=== PATIENT | female | born 1975 | race Caucasian/White ===

== ENCOUNTER 2017-01-18 13:49 | Emergency (ER) | payer SELFPAY ==
[2017-01-18] MEDS ORDERED: Ketorolac 60 MG/2 ML SDV IM ONE (14:24)
--- NOTE | 2017-01-18 14:26 | EDM.PDOC ---
ED HPI GENERAL MEDICAL PROBLEM - General Chief Complaint: Lower Extremity Injury/Pain Stated Complaint: LEFT HIP PAIN Time Seen by Provider: 01/18/17 14:00 Source of Information: Reports: Patient History Limitations: Reports: No Limitations - History of Present Illness INITIAL COMMENTS - FREE TEXT/NARRATIVE: History of present illness: [41-year-old male comes in complaining of pain in her hip. Has been seen for this pain and is been doing some physical therapy type exercises.] Review of systems: As per history of present illness and below otherwise all systems reviewed and negative. Past medical history: As per history of present illness and as reviewed below otherwise noncontributory. Surgical history: As per history of present illness and as reviewed below otherwise noncontributory. Social history: No reported history of drug or alcohol abuse. Family history: As per history of present illness and as reviewed below otherwise noncontributory. Physical exam: HEENT: Atraumatic, normocephalic, pupils reactive, negative for conjunctival pallor or scleral icterus, mucous membranes moist, throat clear, neck supple, nontender, trachea midline. Lungs: Clear to auscultation, breath sounds equal bilaterally, chest nontender. Heart: S1S2, regular, negative for clicks, rubs, or JVD. Abdomen: Soft, nondistended, nontender. Negative for masses or hepatosplenomegaly. Negative for costovertebral tenderness. Pelvis: Stable nontender. Genitourinary: Deferred. Rectal: Deferred. Extremities: Atraumatic, negative for cords or calf pain. Neurovascular unremarkable. Neuro: Awake, alert, oriented. Cranial nerves II through XII unremarkable. Cerebellum unremarkable. Motor and sensory unremarkable throughout. Exam nonfocal. Point tenderness to the piriformis on the left as well as the IT band. No palpable spasm patient does continue to have full range of motion. Diagnostics: [] Therapeutics: [Toradol 60 mg IM] Impression: [Performance pain, IT band tightness] Plan: [Performance stretches, meloxicam, Norflex] Definitive disposition and diagnosis as appropriate pending reevaluation and review of above. Left Hip Pain Score (Numeric/FACES): 4 - Related Data Allergies Allergy/AdvReac Type Severity Reaction Status Date / Time Penicillins Allergy Anaphylactic Verified 01/18/17 14:00 Shock phenobarbital Allergy Rash Verified 01/18/17 14:00 promethazine [From Phenergan] Allergy Anxiety Verified 01/18/17 14:00 Home Meds: Home Meds levETIRAcetam [Keppra] 500 mg PO TID 04/16/16 [History] Diazepam [Valium] 5 mg PO Q6HR PRN 01/18/17 [History] Hydrocodone/Acetaminophen [Hydrocodon-Acetaminophen 5-325] 1 tab PO Q6HR PRN [History] Meloxicam 7.5 mg PO BID #30 tablet 01/18/17 [Rx] Orphenadrine [Norflex] 100 mg PO BID #28 tab.er 01/18/17 [Rx] Past Medical History - Past Health History Medical/Surgical History: Denies Medical/Surgical History Musculoskeletal History: Reports: Other (See Below) Other Musculoskeletal History: degenerative disk disease Neurological History: Reports: Seizure Psychiatric History: Reports: Anxiety Other Dermatologic History: Basal Cell to face - Infectious Disease History Infectious Disease History: Reports: Chicken Pox - Past Surgical History GI Surgical History: Reports: Hernia Repair/Other Female Surgical History: Reports: Hysterectomy, Oophorectomy Social & Family History - Family History Family Medical History: Noncontributory - Tobacco Use Smoking Status *Q: Current Every Day Smoker Years of Tobacco use: 20 Packs/Tins Daily: 0.5 - Recreational Drug Use Recreational Drug Use: Yes Drug Use in Last 12 Months: Yes Recreational Drug Type: Reports: Marijuana/Hashish Recreational Drug Use Frequency: Daily - Living Situation & Occupation Living situation: Reports: , Other Occupation: Employed Review of Systems - Review of Systems Review Of Systems: See Below (See history of present illness) ED EXAM, GENERAL - Physical Exam Exam: See Below (See history of present illness) Course - Vital Signs Last Recorded V/S: Last Vital Signs Temp 36.8 C 01/18/17 13:57 Pulse 98 01/18/17 13:57 Resp 18 01/18/17 13:57 BP 153/114 H 01/18/17 13:57 Pulse Ox 98 01/18/17 13:57 Departure - Departure Time of Disposition: 14:25 Disposition: Home, Self-Care 01 Condition: Good Clinical Impression: Piriformis muscle pain, Iliotibial band syndrome - Discharge Information Prescriptions: Meloxicam 7.5 mg PO BID #30 tablet Orphenadrine [Norflex] 100 mg PO BID #28 tab.er Forms: ED Department Discharge Additional Instructions: The following information is given to patients seen in the emergency department who are being discharged to home. This information is to outline your options for follow-up care. We provide all patients seen in our emergency department with a follow-up referral. The need for follow-up, as well as the timing and circumstances, are variable depending upon the specifics of your emergency department visit. If you don't have a primary care physician on staff, we will provide you with a referral. We always advise you to contact your personal physician following an emergency department visit to inform them of the circumstance of the visit and for follow-up with them and/or the need for any referrals to a consulting specialist. The emergency department will also refer you to a specialist when appropriate. This referral assures that you have the opportunity for follow-up care with a specialist. All of these measure are taken in an effort to provide you with optimal care, which includes your follow-up. Under all circumstances we always encourage you to contact your private physician who remains a resource for coordinating your care. When calling for follow-up care, please make the office aware that this follow-up is from your recent emergency room visit. If for any reason you are refused follow-up, please contact the [facility] Emergency Department at and asked to speak to the emergency department charge nurse. Take medication as directed Follow-up with PCP a 1-2 days Return to ER as needed as discussed
[2017-01-18 16:24] VITALS: BP 134/94
== END 2017-01-18 15:30 | disposition home or self-care (01) ==
LOC: MW.ED 13:49
DX: M76.32 Iliotibial band syndrome, left leg (principal); M79.1 Myalgia; F41.9 Anxiety disorder, unspecified; F17.210 Nicotine dependence, cigarettes, uncomplicated; Z90.710 Acquired absence of both cervix and uterus; Z98.890 Other specified postprocedural states; Z88.0 Allergy status to penicillin; Z88.8 Allergy status to other drugs, medicaments and biological substances
CPT/HCPCS: 96372; 99283; J1885

== ENCOUNTER 2017-08-21 11:35 | Emergency (ER) | payer OTHER ==
--- NOTE | 2017-08-21 11:48 | EDM.PDOC ---
ED HPI GENERAL MEDICAL PROBLEM - General Stated Complaint: SEIZURE Time Seen by Provider: 08/21/17 11:39 Source of Information: Reports: Patient History Limitations: Reports: No Limitations - History of Present Illness INITIAL COMMENTS - FREE TEXT/NARRATIVE: HISTORY AND PHYSICAL: History of present illness: Patient is a 41-year-old female who presents to the emergency room today with complaints of seizure. She states she was at work and had fallen from standing height onto the cement ground. Currently complaining of headache, neck pain and left shoulder pain. She does have a known seizure disorder which she doctors with Dr. Villalobos in [place]. States that she has not seen him in approximately 7 months. Over the past several weeks she has had 4-5 seizures per week, which she attributes to increased stress. He takes Keppra 500 mg twice a day. States she does use marijuana daily for recreational and medicinal purposes. Upon arrival patient is C-collared, per EMS. She is alert and oriented. Is incontinent of urine. Review of systems: As per history of present illness and below otherwise all systems reviewed and negative. Past medical history: As per history of present illness and as reviewed below otherwise noncontributory. Surgical history: As per history of present illness and as reviewed below otherwise noncontributory. Social history: No reported history of drug or alcohol abuse. Family history: As per history of present illness and as reviewed below otherwise noncontributory. Physical exam: General: Well-developed and well-nourished 41-year-old female. Alert and oriented. Nontoxic appearing and in no acute distress. HEENT: Normocephalic, pupils reactive, negative for conjunctival pallor or scleral icterus, mucous membranes moist, throat clear, neck supple, nontender, trachea midline. Patient does have tattoos on the face. Lungs: Clear to auscultation, breath sounds equal bilaterally, chest nontender. Heart: S1S2, regular rate and rhythm without overt murmurs Abdomen: Soft, nondistended, nontender. Negative for masses or hepatosplenomegaly. Negative for costovertebral tenderness. Was incontinent of urine. Pelvis: Stable nontender. Genitourinary: Deferred. Rectal: Deferred. Extremities: Able to move all extremities per self. Does have some tenderness to the left posterior scapula. No cervical tenderness upon palpation, c-collar on. All other extremities including trunk, pelvis, upper and lower extremities are nontender and fully mobile. Neurovascular unremarkable. C-spine/Back: No pinpoint vertebral tenderness upon palpation. No obvious deformity, crepitus or step-offs noted. Denies any numbness or tingling to his peripheral extremities. Strong radial and pedal pulses bilaterally. Neuro: Awake, alert, oriented. Cranial nerves II through XII unremarkable. Cerebellum unremarkable. Motor and sensory unremarkable throughout. Exam nonfocal. Patient is alert and oriented. She states that she has had more frequent seizures over the past couple weeks due to increased stress at work. She has not seen her neurologist in approximately 7 months and has had no medication changes within the last year. She states she is compliant with taking her medications, but does state that she uses marijuana both recreational and and medicinally. Requesting something for her headache at this time. We'll give Toradol IV as she has had Valium revisited. CBC, CMP, UA are within normal limits. The chest x-ray with rib detail, CT of the cervical spine x-ray of the left shoulder are within normal limits. C- collar was removed. This information was shared with the patient. The Keppra lab is a send out and will not get those results for a couple days. Did instruct her to create a follow-up appointment with a primary care provider here , as she states she is unable to get into her neurologist likely for several weeks. We discussed that her Keppra level may indicate that she needs to adjust her medications which her primary care provider could consult with her neurologist do so from here. She voices understanding and is agreeable to plan of care. She denies any further questions at this time. Diagnostics: CBC, CMP, Keppra, UA, chest x-ray, CT cervical spine, x-ray left shoulder Therapeutics: IV fluid, Valium, Toradol Impression: Seizure Plan: 1. Your labs and imaging studies were within normal limits. The Keppra level is a send out and we will not have those results for several days. It is imperative for you to connect with a primary care provider here locally, and KCl medication does need to be adjusted. Please create an appointment within the next couple days for follow-up. Call your neurologist in [place] and schedule follow-up with them as well. 2. Please take the rest of the day to rest and get plenty of fluids. Tylenol and /or Motrin may be used for pain management. 3. Follow up with both her primary care (numbers have been provided for you) gender neurologist as we discussed. Return to the ED as needed and as discussed. Definitive disposition and diagnosis as appropriate pending reevaluation and review of above. Onset: Today Duration: Minutes: Location: Reports: Head, Neck, Upper Extremity, Left Left Shoulder Pain Score (Numeric/FACES): 8 - Related Data Allergies Allergy/AdvReac Type Severity Reaction Status Date / Time Penicillins Allergy Anaphylactic Verified 08/21/17 11:37 Shock phenobarbital Allergy Rash Verified 08/21/17 11:37 promethazine [From Phenergan] Allergy Anxiety Verified 08/21/17 11:37 Home Meds: Home Meds levETIRAcetam [Keppra] 500 mg PO BID 04/16/16 [History] Marijuana 1 dose PO BID 08/21/17 [History] Past Medical History - Past Health History Medical/Surgical History: Denies Medical/Surgical History Musculoskeletal History: Reports: Other (See Below) Other Musculoskeletal History: degenerative disk disease Neurological History: Reports: Seizure Psychiatric History: Reports: Anxiety Other Dermatologic History: Basal Cell to face - Infectious Disease History Infectious Disease History: Reports: Chicken Pox - Past Surgical History GI Surgical History: Reports: Hernia Repair/Other Female Surgical History: Reports: Hysterectomy, Oophorectomy Social & Family History - Family History Family Medical History: Noncontributory - Tobacco Use Smoking Status *Q: Current Every Day Smoker Years of Tobacco use: 20 Packs/Tins Daily: 0.5 - Recreational Drug Use Recreational Drug Use: Yes Drug Use in Last 12 Months: Yes Recreational Drug Type: Reports: Marijuana/Hashish Recreational Drug Use Frequency: Daily - Living Situation & Occupation Living situation: Reports: , Other Occupation: Employed ED ROS GENERAL - Review of Systems Review Of Systems: ROS reveals no pertinent complaints other than HPI. - Physical Exam Exam: See Below (See dictation) Course - Vital Signs Last Recorded V/S: Last Vital Signs Temp 98.7 F 08/21/17 11:44 Pulse 91 08/21/17 11:44 Resp 14 08/21/17 11:44 BP 147/93 H 08/21/17 11:44 Pulse Ox 95 08/21/17 11:44 - Orders/Labs/Meds Orders: Active Orders 24 hr Category Date Time Status NIDHI [REF] Stat Lab 08/21/17 12:11 Received Labs: Laboratory Tests 08/21/17 08/21/17 08/21/17 Range/Units 12:02 12:11 12:11 WBC 6.05 (4.0-11.0) K/uL RBC 4.98 (4.30-5.90) M/uL Hgb 14.6 (12.0-16.0) g/dL Hct 43.3 (36.0-46.0) % MCV 86.9 (80.0-98.0) fL MCH 29.3 (27.0-32.0) pg MCHC 33.7 (31.0-37.0) g/dL RDW Std Deviation 45.2 (28.0-62.0) fl RDW Coeff of Chantelle 14 (11.0-15.0) % Plt Count 242 (150-400) K/uL MPV 10.70 (7.40-12.00) fL Neut % (Auto) 68.4 (48.0-80.0) % Lymph % (Auto) 22.1 (16.0-40.0) % [place] % (Auto) 8.9 (0.0-15.0) % Eos % (Auto) 0.3 (0.0-7.0) % Baso % (Auto) 0.3 (0.0-1.5) % Neut # (Auto) 4.1 (1.4-5.7) K/uL Lymph # (Auto) 1.3 (0.6-2.4) K/uL [place] # (Auto) 0.5 (0.0-0.8) K/uL Eos # (Auto) 0.0 (0.0-0.7) K/uL Baso # (Auto) 0.0 (0.0-0.1) K/uL Nucleated RBC % 0.0 /100WBC Nucleated RBCs # 0 K/uL Sodium 142 (136-146) mmol/L Potassium 3.7 (3.5-5.1) mmol/L Chloride 109 (98-110) mmol/L Carbon Dioxide 20 L (21-31) mmol/L BUN 15 (6.0-23.0) mg/dL Creatinine 0.8 (0.6-1.5) mg/dL Est Cr Clr Drug Dosing 77.65 mL/min Estimated GFR (MDRD) > 60.0 ml/min Glucose 86 (60-110) mg/dL Calcium 9.5 (8.8-10.8) mg/dL Total Bilirubin 0.4 (0.1-1.5) mg/dL AST 20 (5-40) IU/L ALT 11 (8-54) IU/L Alkaline Phosphatase 81 (40-150) Total Protein 7.3 (6.0-8.0) g/dL Albumin 4.7 (3.5-5.0) g/dL Globulin 2.6 (2.0-3.5) g/dL Albumin/Globulin Ratio 1.8 (1.3-2.8) Urine Color YELLOW Urine Appearance CLEAR Urine pH 7.0 (5.0-8.0) Ur Specific [place] 1.015 (1.001-1.035) Urine Protein NEGATIVE (NEGATIVE) mg/dL Urine Glucose (UA) NEGATIVE (NEGATIVE) mg/dL Urine Ketones NEGATIVE (NEGATIVE) mg/dL Urine Occult Blood NEGATIVE (NEGATIVE) Urine Nitrite NEGATIVE (NEGATIVE) Urine Bilirubin NEGATIVE (NEGATIVE) Urine Urobilinogen 0.2 (<2.0) EU/dL Ur Leukocyte Esterase NEGATIVE (NEGATIVE) Urine RBC 0-1 (0-2/HPF) Urine WBC 0-1 (0-5/HPF) Ur Epithelial Cells RARE (NONE-FEW) Urine Bacteria RARE (NEGATIVE) Meds: Medications Discontinued Medications Generic Name Dose Route Start Last Admin Trade Name Freq PRN Reason Stop Dose Admin Diazepam 5 mg 08/21/17 11:42 08/21/17 12:07 Valium IV 08/21/17 11:43 5 mg ONETIME ONE Administration Ketorolac Tromethamine 30 mg 08/21/17 13:28 Toradol IVPUSH 08/21/17 13:29 ONETIME ONE Departure - Departure Time of Disposition: 13:35 Disposition: Home, Self-Care 01 Clinical Impression: Seizure - Discharge Information Additional Instructions: My general discharge The following information is given to patients seen in the emergency department who are being discharged to home. This information is to outline your options for follow-up care. We provide all patients seen in our emergency department with a follow-up referral. The need for follow-up, as well as the timing and circumstances, are variable depending upon the specifics of your emergency department visit. If you don't have a primary care physician on staff, we will provide you with a referral. We always advise you to contact your personal physician following an emergency department visit to inform them of the circumstance of the visit and for follow-up with them and/or the need for any referrals to a consulting specialist. The emergency department will also refer you to a specialist when appropriate. This referral assures that you have the opportunity for follow-up care with a specialist. All of these measure are taken in an effort to provide you with optimal care, which includes your follow-up. Under all circumstances we always encourage you to contact your private physician who remains a resource for coordinating your care. When calling for follow-up care, please make the office aware that this follow-up is from your recent emergency room visit. If for any reason you are refused follow-up, please contact the [facility] Emergency Department at and asked to speak to the emergency department charge nurse. [facility] [address] [place] [id number] [facility] - Neurology Professional [address], [address] [place] [address] 1. Your labs and imaging studies were within normal limits. The Keppra level is a send out and we will not have those results for several days. It is imperative for you to connect with a primary care provider here locally, and KCl medication does need to be adjusted. Please create an appointment within the next couple days for follow-up. Call your neurologist in [place] and schedule follow-up with them as well. 2. Please take the rest of the day to rest and get plenty of fluids. Tylenol and /or Motrin may be used for pain management. 3. Follow up with both her primary care (numbers have been provided for you) and your neurologist as we discussed. Return to the ED as needed and as discussed. - My Orders Last 24 Hours: My Active Orders 08/21/17 12:11 KEPPRA [REF] Stat - Assessment/Plan Last 24 Hours: My Active Orders 08/21/17 12:11 SUDHIRRA [REF] Stat
[2017-08-21 12:46] LABS: CHLORIDE,CL 109 mmol/L (98-110); SODIUM,NA 142 mmol/L (136-146)
--- NOTE | 2017-08-21 12:48 | CT ---
EXAMINATION: Non contrast CT head. Coronal and sagittal reformats. HISTORY: Seizure FINDINGS: No evidence of intra or extra axial hemorrhage, mass, midline shift, hydrocephalus or edema. No hypoattenuation changes in the major vascular territories to suggest acute infarct. No abnormal intracranial calcifications are detected. No evidence of substantial vascular calcificat ions. Paranasal sinuses and mastoid air cells are well aerated without substantial findings. The orbits an d globes are symmetric Pituitary fossa appears unremarkable. Calvarium is intact. No evidence of skull fracture. IMPRESSION: No acute intracranial findings.
--- NOTE | 2017-08-21 13:02 | CT ---
EXAMINATION: CT cervical spine HISTORY: Fall COMPARISON: None TECHNIQUE: Axial CT images obtained through the cervical spine without contrast. Coronal and sagittal reconstructions obtained. FINDINGS: The cervical spinal alignment is normal. The vertebral body heights and disc spaces appear well-maintained. Bone mineralization is normal. No fracture or acute osseous abnormality. No osseous neural foraminal or spinal canal stenosis. Paravertebral soft tissues appear normal. Minimal scarring within the lung apices. IMPRESSION: No acute osseous cervical spine injury.
--- NOTE | 2017-08-21 13:08 | CR ---
EXAMINATION: PA chest and left ribs. HISTORY: Fall. FINDINGS: The trachea is midline. The cardiomediastinal silhouette is within normal limits. No pulmonary infilt rates, effusions or pneumothorax. Osseous structures appear unremarkable. Probable old left-sided rib fractures without evidence of an acute or displaced rib fracture. IMPRESSION: No acute cardiopulmonary process.
--- NOTE | 2017-08-21 13:10 | CR ---
EXAMINATION: Left shoulder HISTORY: Seizure COMPARISON: None TECHNIQUE: 3 views FINDINGS/IMPRESSION: There is no acute osseous abnormality, dislocation, or fracture. Bone mineraliza tion appears normal. Joint spaces are preserved.
[2017-08-21] MEDS ORDERED: Ketorolac 30 MG/ML SDV IVPUSH ONE (13:28)
[2017-08-21 14:18] VITALS: BP 135/90
== END 2017-08-21 14:03 | disposition home or self-care (01) ==
LOC: MW.ED 11:35
DX: R56.9 Unspecified convulsions (principal); F17.210 Nicotine dependence, cigarettes, uncomplicated; Z88.0 Allergy status to penicillin
CPT/HCPCS: 36415; 70450; 71101; 72125; 73030; 80053; 80177; 81001; 85025; 96374; 96375; 99285; J1885; A9270-GY